=== PATIENT | female | born 1970 | race Caucasian/White ===

== ENCOUNTER 2017-07-16 12:47 | Emergency (ER) | payer OTHER ==
[~2017-07-16] VITALS: Ht 160 cm; Wt 81.6 kg
--- NOTE | 2017-07-16 12:47 | NUR ---
Patient was BIBA and taken to bed 01 via gurney per EMS.
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
[2017-07-16 12:52] VITALS: BP 138/85
--- NOTE | 2017-07-16 13:03 | NUR ---
ER MD DR. BOO EVALUATING PT AT BEDSIDE.
[2017-07-16] MEDS ORDERED: KETOROLAC 30 MG/ML VIAL IM ONE (13:10)
--- NOTE | 2017-07-16 13:20 | NUR ---
[facility] AT BEDSIDE.
--- NOTE | 2017-07-16 13:45 | NUR ---
XRAY AT BEDSIDE.
[2017-07-16] MEDS ORDERED: CYCLOBENZAPRINE 10 MG TAB PO ONE (15:00)
[2017-07-16] MEDS ORDERED: ACETAMINOPHEN EXTRA STRENGTH 500 MG TAB PO ONE (15:00)
[2017-07-16 15:41] VITALS: BP 120/86
--- NOTE | 2017-07-16 15:41 | NUR ---
Patient discharged with v/s stable. Written and verbal after care instructions given and explained. Patient alert, oriented and verbalized understanding of instructions. Ambulatory with steady gait. All questions addressed prior to discharge. ID band removed. Patient advised to follow up with PMD. Rx of NAPROXYN given. Patient educated on indication of medication including possible reaction and side effects. Opportunity to ask questions provided and answered.
== END 2017-07-16 15:41 | disposition home or self-care (01) ==
LOC: MED 12:47
DX: S50.811A Abrasion of right forearm, initial encounter (principal); M79.644 Pain in right finger(s); V43.52XA Car driver injured in collision with other type car in traffic accident, initial encounter; Y93.89 Activity, other specified; Y92.89 Other specified places as the place of occurrence of the external cause; Y99.8 Other external cause status
CPT/HCPCS: 29125; 73090; 73130; 96372; 99284; J1885